=== PATIENT | female | born 1995 | race Caucasian/White ===

== ENCOUNTER 2020-03-07 11:54 | Emergency (ER) | payer OTHER, BC ==
--- NOTE | 2020-03-07 12:28 | EDM.PDOC ---
ED HPI GENERAL MEDICAL PROBLEM - General Chief Complaint: Lower Extremity Injury/Pain Stated Complaint: INJURED LT FT Time Seen by Provider: 03/07/20 12:19 Source of Information: Reports: Patient History Limitations: Reports: No Limitations - History of Present Illness INITIAL COMMENTS - FREE TEXT/NARRATIVE: This 24 year old female states that she twisted her left ankle while walking on a gravel road at work yesterday. She complains of pain with weight bearing since. She applied ice and heat last night. She denies any other injuries. left ankle Pain Score (Numeric/FACES): 6 - Related Data Allergies Allergy/AdvReac Type Severity Reaction Status Date / Time No Known Allergies Allergy Verified 03/07/20 12:18 Home Meds: Home Meds oxyCODONE HCl/Acetaminophen [Percocet 5-325 mg Tablet] 1 each PO Q6H PRN 5 Days #12 tablet 03/07/20 [Rx] Review of Systems - Review of Systems Review Of Systems: See Below Constitutional: Reports: No Symptoms Eyes: Reports: No Symptoms Ears: Reports: No Symptoms Nose: Reports: No Symptoms Respiratory: Reports: No Symptoms Cardiovascular: Reports: No Symptoms GI/Abdominal: Reports: No Symptoms Genitourinary: Reports: No Symptoms Musculoskeletal: Reports: Foot Pain (left foot and ankle) Skin: Reports: No Symptoms Neurological: Reports: No Symptoms ED EXAM, GENERAL - Physical Exam Exam: See Below Exam Limited By: No Limitations General Appearance: Alert, WD/WN, No Apparent Distress Head: Atraumatic, Normocephalic Neck: Normal Inspection, Supple, Non-Tender, Full Range of Motion Respiratory/Chest: No Respiratory Distress, Lungs Clear Cardiovascular: Normal Peripheral Pulses, Regular Rate, Rhythm, No Edema Peripheral Pulses: 3+: Radial (L), Radial (R), Dorsalis Pedis (L), Dorsalis Pedis (R) GI/Abdominal: Normal Bowel Sounds, Soft, Non-Tender (Female) Exam: Deferred Rectal (Female) Exam: Deferred Back Exam: Normal Inspection, Full Range of Motion Extremities: Normal Capillary Refill, Other (swelling with mild tenderness noted over the left lateral malleolus. Tenderness is also noted over the left dorsal foot over the 1-3rd metatarsal area. Neuro/Vasc intact.). No: Romero's Sign Neurological: Alert, Oriented (times 4), CN II-XII Intact, Normal Reflexes, No Motor/Sensory Deficits Psychiatric: Normal Affect, Normal Mood Skin Exam: Warm, Dry, Intact, Normal Color, No Rash Lymphatic: No Adenopathy Course - Vital Signs Text/Narrative:: The patient X-rays of the left foot reveals a fracture of the 5th metatarsal. She will be discharged. She agrees with the discharge plan. Last Recorded V/S: Last Vital Signs Temp 97.3 F 03/07/20 12:18 Pulse 85 03/07/20 12:18 Resp 18 03/07/20 12:18 BP 129/48 L 03/07/20 12:18 Pulse Ox 95 03/07/20 12:18 - Orders/Labs/Meds Orders: Active Orders 24 hr Category Date Time Status DME for Discharge [COMM] Stat Oth 03/07/20 13:15 Ordered Departure - Departure Time of Disposition: 13:25 Disposition: Home, Self-Care 01 Condition: Good Clinical Impression: Left ankle sprain Qualifiers: Encounter type: initial encounter Involved ligament of ankle: unspecified ligament Qualified Code(s): S93.402A - Sprain of unspecified ligament of left ankle, initial encounter Fracture of metatarsal bone of left foot Qualifiers: Encounter type: initial encounter Metatarsal bone: fifth Fracture type: closed Fracture alignment: nondisplaced Qualified Code(s): S92.355A - Nondisplaced fracture of fifth metatarsal bone, left foot, initial encounter for closed fracture - Discharge Information *PRESCRIPTION DRUG MONITORING PROGRAM REVIEWED*: Yes *COPY OF PRESCRIPTION DRUG MONITORING REPORT IN PATIENT MARSHA: Yes Instructions: Ankle Sprain, [id number], How to Use Cold Therapy, Crutch Use, Adult, [id number], Metatarsal Fracture Referrals: PCP,None [Primary Care Provider] - Forms: ED Department Discharge, ED Return to Work/School Form Additional Instructions: Take medications as directed. Follow up with local Ortho in three to four days. Cold compresses to the left foot for two days (30 minutes on and one hour off while awake). Crutch walk for now. Wear your post op shoe until the Ortho tells you not to. No work until cleared by ortho. Rest for the next 24 hours. Return to the ED if your condition gets worse or should you have any questions or concerns. The following information is given to patients seen in the emergency department who are being discharged to home. This information is to outline your options for follow-up care. We provide all patients seen in our emergency department with a follow-up referral. The need for follow-up, as well as the timing and circumstances, are variable depending upon the specifics of your emergency department visit. If you don't have a primary care physician on staff, we will provide you with a referral. We always advise you to contact your personal physician following an emergency department visit to inform them of the circumstance of the visit and for follow-up with them and/or the need for any referrals to a consulting specialist. The emergency department will also refer you to a specialist when appropriate. This referral assures that you have the opportunity for follow-up care with a specialist. All of these measure are taken in an effort to provide you with optimal care, which includes your follow-up. Under all circumstances we always encourage you to contact your private physician who remains a resource for coordinating your care. When calling for follow-up care, please make the office aware that this follow-up is from your recent emergency room visit. If for any reason you are refused follow-up, please contact the [facility] Emergency Department at and asked to speak to the emergency department charge nurse. Sepsis Event Note - Evaluation Sepsis Screening Result: No Definite Risk - Focused Exam Vital Signs: Vital Signs Temp Pulse Resp BP Pulse Ox 03/07/20 12:18 97.3 F 85 18 129/48 L 95 Date Exam was Performed: 03/07/20 Time Exam was Performed: 13:24
--- NOTE | 2020-03-07 13:09 | CR ---
Left foot: 2 views left foot were obtained. Fracture is again seen within the proximal shaft of the 5th metatarsal. As mentioned on ankle exam, this may be subacute in age. Fracture line is still visible. No additional fracture or other bony abnormality is appreciated. Impression: 1. 5th metatarsal fracture as described above. Diagnostic code #3 This report was dictated in MDT
--- NOTE | 2020-03-07 13:09 | CR ---
Left ankle: 2 views left ankle were obtained. Comparison: No previous ankle study. Fracture is identified within the proximal shaft of the 5th metatarsal. Age of this is indeterminate and could be subacute. Ankle mortise is symmetric. No additional fracture or other abnormality is appreciated. Impression: 1. Fracture within the proximal 5th metatarsal as noted above. 2. 2 view left ankle study is otherwise unremarkable. Diagnostic code #3 This report was dictated in MDT
== END 2020-03-07 13:50 | disposition home or self-care (01) ==
LOC: MW.ED 11:54
DX: S92.355A Nondisplaced fracture of fifth metatarsal bone, left foot, initial encounter for closed fracture (principal); S93.402A Sprain of unspecified ligament of left ankle, initial encounter; X50.1XXA Overexertion from prolonged static or awkward postures, initial encounter
CPT/HCPCS: 73600-26-LT; 73600-LT; 73620-26-LT; 73620-LT; 99283; 99283-25